=== PATIENT | female | born 1980 | race Caucasian/White ===

== ENCOUNTER 2016-09-26 21:36 | Emergency (ER) | payer OTHER ==
[~2016-09-26] VITALS: Ht 167.6 cm; Wt 75.0 kg
[~2016-09-26 21:36] MED LIST: ALB083NB3 INH; BACL20TA PO; CLAR10T PO; GABA300C PO; LEVO50CA2 PO; NAPR550T2 PO; PHEN200T16 PO; PRI20 PO; PRO20 PO; ProAirHFA IH; QVAR INH; TIOT18CA INH; TRIA15CR TP; VICODIN 5-3251 EACH PO; VIS25 PO; ZLP10T PO; [UNRECOGNIZED DRUG - CODE] PO
[2016-09-26 21:39] VITALS: BP 132/95; PULSE 90; RESP 16; O2SAT 100
--- NOTE | 2016-09-26 21:46 | ED.REPORT ---
HPI-General Illness Date of Service Sep 26, 2016 ED Provider: Nursing Notes Stated Complaint: FIT FOR RESIDENTIAL Chief Complaint: General Complaint Allergies: Coded Allergies: meperidine (Verified Allergy, Severe, "HEART STOPS", 09/26/16) Scheduled Acyclovir-Expunged Drug, Do Not Renew! (Acyclovir-Expunged Drug, Do Not Renew!) 400 Mg Tablet 400 MG PO DAILY Albuterol-Expunged Drug, Do Not Renew! (Albuterol-Expunged Drug, Do Not Renew!) 2.5 Mg/3 Ml Nebu 3 ML INH QIDP Albuterol-Expunged Drug, Do Not Renew! (Albuterol-Expunged Drug, Do Not Renew!) 200 Puff/8.5 Gm Hfa.aer.ad 2 PUFF IH Q 4HRS PRN Baclofen-Expunged Drug, Do Not Renew! (Baclofen-Expunged Drug, Do Not Renew!) 20 Mg Tablet 60 MG PO HS Beclomethasone-Expunged Drug, Do Not Renew! (Jqlk-13-Mhguiavy Drug, Do Not Renew !) 40 Mcg Puff 2 PUFF INH BID SHAKE WELL*RINSE MOUTH AFTER USE* FLUoxetine-Expunged Drug, Do Not Renew! (FLUoxetine-Expunged Drug, Do Not Renew! ) 20 Mg Capsule 60 MG PO DAILY Gabapentin-Expunged Drug, Do Not Renew! (Neurontin-Expunged Drug, Do Not Renew! ) 300 Mg Capsule 600 MG PO HS Hydrocod/APAP-Expunged, Do Not Renew! (VICODIN 5/325-Expunged Drug, Do Not Renew ) 1 Each Tablet 1 TAB PO Q6HP Levothyroxine-Expunged Drug, Do Not Renew! (Tirosint-Expunged Drug, Do Not Renew !) 50 Mcg Capsule 50 MCG PO DAILY Loratadine-Expunged Drug, Do Not Renew! (Loratadine-Expunged Drug, Do Not Renew! ) 10 Mg Tablet 10 MG PO DAILY Naproxen Sodium-Expunged Drug, Do Not Renew! (Naproxen Sodium-Expunged Drug, Do Not Renew!) 550 Mg Tablet 550 MG PO BID INSTRUCTED TO STOP Omeprazole-Expunged Drug, Do Not Renew! (Omeprazole-Expunged Drug, Do Not Renew! ) 20 Mg Capcr 20 MG PO DAILY Phenazopyridine-Expunged Drug, Do Not Renew! (Pyridium-Expunged Drug, Do Not Renew!) 200 Mg Tablet 200 MG PO TIDP Tiotropium Br-Expunged Drug, Do Not Renew! (Spiriva-Expunged Drug, Do Not Renew! ) 18 Mcg/Puff Pack 18 MCG INH DAILY INHALE 1 CAPSULE Triamcinolone Meir-Expunged Drug, Do Not Renew (Triamcinolone Meir-Expunged Drug, Do Not Renew) 15 Gm Cream..g. 15 GM TP BIDP Zolpidem-Expunged Drug, Do Not Renew! (Zolpidem-Expunged Drug, Do Not Renew!) 10 Mg Tab 10 MG PO HSP For Elderly/Debilitated patients and hepatic insufficiency recommended dose is 5 mg. hydrOXYzine Mitra-Expunged Drug, Do Not Renew! (Vistaril-Expunged Drug, Do Not Renew!) 25 Mg Capsule 50 MG PO BIDP General Time Seen by MD: 21:46 Physical Exam Vital Signs Vital Signs Date Time Temp Pulse Resp B/P Pulse Ox O2 Delivery O2 Flow Rate FiO2 09/26/16 23:30 36.4 88 18 128/87 100 Room Air 09/26/16 21:39 36.4 90 16 132/95 100 Room Air Interpretation & Diagnostics Lab Results Interpretation Test 09/26/16 22:55 Hold Urine Received (Received) Discharge & Departure Referrals: Tianna Mcfarland MD (PCP) Maurisio Yeh DO Sep 26, 2016 21:46 Angel Vogt MD Sep 27, 2016 04:41
--- NOTE | 2016-09-26 21:51 | ED.REPORT ---
HPI-General Illness Date of Service Sep 26, 2016 ED Provider: Angel Vogt MD Pt is a 36 y.o. female with a hx of heroin use who presents to the ED in Police custody for a fit for fci evaluation. Pt states that she is currently 11 weeks however per her PMHx she has a hx of tubal ligation. Pt endorses to IV heroin use several days ago. She denies any current abscesses. Nursing Notes Stated Complaint: FIT FOR CARE HOME Chief Complaint: General Complaint Nursing Notes Reviewed: Yes Allergies: Coded Allergies: meperidine (Verified Allergy, Severe, "HEART STOPS", 09/26/16) Scheduled Acyclovir-Expunged Drug, Do Not Renew! (Acyclovir-Expunged Drug, Do Not Renew!) 400 Mg Tablet 400 MG PO DAILY Albuterol-Expunged Drug, Do Not Renew! (Albuterol-Expunged Drug, Do Not Renew!) 2.5 Mg/3 Ml Nebu 3 ML INH QIDP Albuterol-Expunged Drug, Do Not Renew! (Albuterol-Expunged Drug, Do Not Renew!) 200 Puff/8.5 Gm Hfa.aer.ad 2 PUFF IH Q 4HRS PRN Baclofen-Expunged Drug, Do Not Renew! (Baclofen-Expunged Drug, Do Not Renew!) 20 Mg Tablet 60 MG PO HS Beclomethasone-Expunged Drug, Do Not Renew! (Xwyx-88-Iefdxogg Drug, Do Not Renew !) 40 Mcg Puff 2 PUFF INH BID SHAKE WELL*RINSE MOUTH AFTER USE* FLUoxetine-Expunged Drug, Do Not Renew! (FLUoxetine-Expunged Drug, Do Not Renew! ) 20 Mg Capsule 60 MG PO DAILY Gabapentin-Expunged Drug, Do Not Renew! (Neurontin-Expunged Drug, Do Not Renew! ) 300 Mg Capsule 600 MG PO HS Hydrocod/APAP-Expunged, Do Not Renew! (VICODIN 5/325-Expunged Drug, Do Not Renew ) 1 Each Tablet 1 TAB PO Q6HP Levothyroxine-Expunged Drug, Do Not Renew! (Tirosint-Expunged Drug, Do Not Renew !) 50 Mcg Capsule 50 MCG PO DAILY Loratadine-Expunged Drug, Do Not Renew! (Loratadine-Expunged Drug, Do Not Renew! ) 10 Mg Tablet 10 MG PO DAILY Naproxen Sodium-Expunged Drug, Do Not Renew! (Naproxen Sodium-Expunged Drug, Do Not Renew!) 550 Mg Tablet 550 MG PO BID INSTRUCTED TO STOP Omeprazole-Expunged Drug, Do Not Renew! (Omeprazole-Expunged Drug, Do Not Renew! ) 20 Mg Capcr 20 MG PO DAILY Phenazopyridine-Expunged Drug, Do Not Renew! (Pyridium-Expunged Drug, Do Not Renew!) 200 Mg Tablet 200 MG PO TIDP Tiotropium Br-Expunged Drug, Do Not Renew! (Spiriva-Expunged Drug, Do Not Renew! ) 18 Mcg/Puff Pack 18 MCG INH DAILY INHALE 1 CAPSULE Triamcinolone Meir-Expunged Drug, Do Not Renew (Triamcinolone Meir-Expunged Drug, Do Not Renew) 15 Gm Cream..g. 15 GM TP BIDP Zolpidem-Expunged Drug, Do Not Renew! (Zolpidem-Expunged Drug, Do Not Renew!) 10 Mg Tab 10 MG PO HSP For Elderly/Debilitated patients and hepatic insufficiency recommended dose is 5 mg. hydrOXYzine Mitra-Expunged Drug, Do Not Renew! (Vistaril-Expunged Drug, Do Not Renew!) 25 Mg Capsule 50 MG PO BIDP General Time Seen by MD: 21:49 Chief Complaint Medical clearance Hx Obtained From: Patient, Police Arrived By: Police Sudden in Onset?: No Severity: Current: No pain currently Past Medical History Past Medical History Reports: Asthma, COPD Reports: Depression, Heroin use, Thyroid disease, Urinary tract infection Past Surgical History Reports: Appendectomy Reports: Tubal ligation Smoking History Current Every Day Smoker Social History Drug Use: IV drugs, THC Ambulatory Status Independent Review of Systems Full Review of Systems Female: Reports: Skin: Denies Rash (Abscess) Complete sys rev & neg: except as marked. Physical Exam Vital Signs Vital Signs Date Time Temp Pulse Resp B/P Pulse Ox O2 Delivery O2 Flow Rate FiO2 09/26/16 23:30 36.4 88 18 128/87 100 Room Air 09/26/16 21:39 36.4 90 16 132/95 100 Room Air Initial VS: Reviewed, Vital signs normal Abdomen / GI: No distention Extremities: Vascular intact, Neuro intact Skin: Warm, Dry, No cyanosis Neurologic: Alert, Oriented, Nonfocal General/Constitutional: Awake, Alert, No acute distress, Well appearing, Well developed, Well hydrated, Well nourished, Not toxic appearing Head / Eyes: Atraumatic, Normocephalic, PERRL Respiratory / Chest: Atraumatic, Breath sounds NL, Breath sounds = bilat, No respiratory distress Cardiovascular: Heart rate NL, Regular rhythm, Heart sounds NL : Exam deferred (Negative urine) Interpretation & Diagnostics Lab Results Interpretation Test 09/26/16 22:55 Urine HCG, Qualitative Negative (Negative) Hold Urine Received (Received) Point of Care Testing: Preg test neg - urine Re-Eval/Medical Decision Med Decision/Clinical Course 36-year-old female who is in route to fci. She claimed to the officer that she was and withdrawing from heroin. She does not show significant withdrawal symptoms at this time. She has had a previous tubal ligation without reversal and her urine test is negative. I suspect that she is malingering to get out of fci or get on buprenorphine in fci. She is fit for fci and will follow up with [facility]ci medical as needed for withdrawal symptoms. Source of Hx: Old records Time of Eval: 23:00 Re-Evaluation/Progress Note: Physical exam performed. Lab results discussed. Counseled Regarding: Diagnosis, Lab results, Need for follow-up, When/why to return to ED Discharge & Departure Primary Impression: Medical clearance for incarceration Additional Impressions: Opioid dependence Substance use status: uncomplicated Qualified Code: F11.20 - Opioid dependence, uncomplicated test negative Disposition: Home Discharge Condition All VS Reviewed: Yes Condition: No Change Additional Instructions: You are not . You are fit for fci. Referrals: Tianna Mcfarland MD (PCP) Eli Attestation Portions of this note were transcribed by Jenn Torres. I, Dr. Vogt personally performed the history, physical exam and medical decision-making; I reviewed and confirmed the accuracy of the information in the transcribed note. Signed by: Eli Vance, 09/26/16 and 2311. copies to: Tianna Mcfarland MD, Howard L MD Sep 26, 2016 21:51 JENN TORRES Sep 26, 2016 22:04
[2016-09-26 23:30] VITALS: BP 128/87; PULSE 88; RESP 18; O2SAT 100
== END 2016-09-26 23:27 | disposition home or self-care (01) ==
LOC: SED 21:36
DX: F11.20 Opioid dependence, uncomplicated (principal); Z32.02 Encounter for pregnancy test, result negative; J44.9 Chronic obstructive pulmonary disease, unspecified; E07.9 Disorder of thyroid, unspecified; F17.200 Nicotine dependence, unspecified, uncomplicated; Z88.5 Allergy status to narcotic agent